=== PATIENT | male | born 1960 | race Caucasian/White ===

== ENCOUNTER 2019-08-07 06:33 | Outpatient (CLI) | payer OTHER, SELFPAY ==
[2019-08-07 07:47] LABS: Alanine Aminotransferase 18 U/L (4-50); Albumin Level 4.4 g/dL (3.5-5.1); Alkaline Phosphatase 60 U/L (38-126); Aspartate Amino Transferase 19 U/L (17-59); Bilirubin,Total 0.2 mg/dL (0.2-1.3); Blood Urea Nitrogen 19 mg/dL (9-20); Calcium 9.2 mg/dL (8.4-10.2); Carbon Dioxide 26 mmol/L (22-30); Chloride 101 mmol/L (98-107); Cholesterol 236 mg/dL (0-200); Estimated Glomerular Filt Rate > 60; Glucose 117 mg/dL (75-110); HDL Direct 45 mg/dL; Potassium 4.2 mmol/L (3.4-5.0); Sodium 135 mmol/L (137-145); Triglycerides 129 mg/dL (<150)
[2019-08-07 07:58] LABS: LDL Cholesterol Direct 161 mg/dL
[2019-08-07 08:16] LABS: Prostate Specific Antigen 1.6 ng/mL (< OR = 4.0)
== END 2019-08-07 06:34 | disposition home or self-care (01) ==
PROVIDERS: PCP Emergency Medicine; Visit Provider Emergency Medicine
DX: E78.5 Hyperlipidemia, unspecified (principal); E11.9 Type 2 diabetes mellitus without complications; Z12.5 Encounter for screening for malignant neoplasm of prostate
CPT/HCPCS: 36415; 80053; 80061; 83036; 84153

== ENCOUNTER 2020-06-21 06:45 | Outpatient (CLI) | payer OTHER, SELFPAY ==
[2020-06-21 07:42] LABS: Alanine Aminotransferase 24 U/L (4-50); Albumin Level 4.1 g/dL (3.5-5.1); Alkaline Phosphatase 43 U/L (38-126); Anion Gap 7 mmol/L (8-16); Aspartate Amino Transferase 24 U/L (17-59); Bilirubin,Total 0.2 mg/dL (0.2-1.3); Blood Urea Nitrogen 16 mg/dL (9-20); Calcium 9.2 mg/dL (8.4-10.2); Carbon Dioxide 27 mmol/L (22-30); Chloride 106 mmol/L (98-107); Cholesterol 246 mg/dL (0-200); Estimated Glomerular Filt Rate > 60; Glucose 116 mg/dL (75-110); HDL Direct 31 mg/dL; Potassium 4.5 mmol/L (3.4-5.0); Sodium 140 mmol/L (137-145); Triglycerides 191 mg/dL (<150)
[2020-06-21 07:53] LABS: LDL Cholesterol Direct 175 mg/dL
[2020-06-21 07:56] LABS: Hemoglobin A1C 6.4 % (<5.7)
[2020-06-21 08:00] LABS: Creatinine Urine 38.7 mg/dL
[2020-06-21 08:54] LABS: Microalbumin Urine Random < 6.0 mg/L (0-16.7)
[2020-06-21 08:55] LABS: MALB Creatinine Ratio < 15.5 mg/g (0-30)
== END 2020-06-21 06:46 | disposition home or self-care (01) ==
LOC: ANHLAB 06:47
PROVIDERS: PCP Emergency Medicine; Visit Provider Emergency Medicine
DX: E78.5 Hyperlipidemia, unspecified (principal); E11.9 Type 2 diabetes mellitus without complications
CPT/HCPCS: 36415; 80053; 80061; 82043; 83036

== ENCOUNTER 2021-04-15 09:51 | Outpatient (CLI) | payer OTHER, SELFPAY ==
[2021-04-15 10:33] LABS: Creatinine Urine 41.1 mg/dL
[2021-04-15 10:47] LABS: Microalbumin Urine Random < 6.0 mg/L (0-16.7)
[2021-04-15 10:48] LABS: MALB Creatinine Ratio < 14.6 mg/g (0-30)
[2021-04-15 11:28] LABS: Hemoglobin A1C 6.5 % (<5.7)
[2021-04-15 11:30] LABS: Alanine Aminotransferase 25 U/L (4-50); Albumin Level 4.6 g/dL (3.5-5.1); Alkaline Phosphatase 72 U/L (38-126); Anion Gap 7 mmol/L (8-16); Aspartate Amino Transferase 26 U/L (17-59); Bilirubin,Total 0.7 mg/dL (0.2-1.3); Blood Urea Nitrogen 19 mg/dL (9-20); Calcium 9.4 mg/dL (8.4-10.2); Carbon Dioxide 27 mmol/L (22-30); Chloride 100 mmol/L (98-107); Cholesterol 204 mg/dL (0-200); Estimated Glomerular Filt Rate > 60; Glucose 111 mg/dL (65-110); HDL Direct 53 mg/dL; Potassium 4.2 mmol/L (3.4-5.0); Sodium 134 mmol/L (137-145); Triglycerides 180 mg/dL (<150)
[2021-04-15 11:42] LABS: LDL Cholesterol Direct 120 mg/dL
[2021-04-15 12:01] LABS: Prostate Specific Antigen 2.3 ng/mL (< OR = 4.0)
== END 2021-04-15 09:52 | disposition home or self-care (01) ==
PROVIDERS: PCP Emergency Medicine; Visit Provider Emergency Medicine
DX: Z12.5 Encounter for screening for malignant neoplasm of prostate (principal); E78.5 Hyperlipidemia, unspecified; E11.9 Type 2 diabetes mellitus without complications
CPT/HCPCS: 36415; 80053; 80061; 82043; 83036; 84153; G0103